=== PATIENT | female | born 1990 | race Caucasian/White ===

== ENCOUNTER 2018-09-07 20:45 | Inpatient (IN) | payer MEDICAID ==
[~2018-09-07] VITALS: Ht 162.6 cm; Wt 71.7 kg
[2018-09-07 21:40] VITALS: BP 106/80
[2018-09-07] MEDS ORDERED: CARBOPROST 250 MCG/ML AMP IM PRN (21:40)
[2018-09-07] MEDS ORDERED: NALBUPHINE 10 MG/ML AMP IVP PRN (21:40)
[2018-09-07] MEDS ORDERED: METHYLERGONOVINE 0.2 MG/ML AMP IM PRN (21:40)
[2018-09-07] MEDS ORDERED: OXYTOCIN 10 UNITS/ML VIAL IM SCH (21:40)
[2018-09-07] MEDS ORDERED: PREN-380 PO (21:43)
[2018-09-07] MEDS ORDERED: LIDOCAINE 2% 1000 MG/50 ML VIAL INJ ONE (22:18)
[2018-09-07 22:24] LABS: BASOPHILS # (AUTO) 0.1 K/uL (0.00-0.22); BASOPHILS % (AUTO) 0.8 % (0.0-2.0); EOSINOPHILS # (AUTO) 0.1 K/uL (0-0.4); EOSINOPHILS % (AUTO) 0.8 % (0.0-4.0); HEMATOCRIT 36.2 % (36-48); HEMOGLOBIN 11.6 g/dL (12.0-16.0); LYMPHOCYTES # (AUTO) 1.5 K/uL (2.5-16.5); LYMPHOCYTES % (AUTO) 23.2 % (20.5-51.1); MEAN CORPUSCULAR HEMOGLOBIN 25 pg (27-31); MEAN CORPUSCULAR HGB CONC 32 g/dL (33-37); MEAN CORPUSCULAR VOLUME 78.9 fL (80-94); MONOCYTES # (AUTO) 0.5 K/uL (0.8-1.0); MONOCYTES % (AUTO) 8.1 % (1.7-9.3); NEUTROPHILS # (AUTO) 4.4 K/uL (1.8-7.7); NEUTROPHILS % (AUTO) 67.1 % (42.2-75.2); PLATELET COUNT (AUTO) 123 K/uL (140-450); RED BLOOD CELL COUNT(AUTO) 4.58 MIL/uL (4.20-5.40); WHITE BLOOD COUNT (AUTO) 6.6 K/uL (4.8-10.8)
[2018-09-07] MEDS: LACTATED RINGERS 1,000 ML IV SCH (22:33)
[2018-09-07 22:35] LABS: APPEARANCE,URINE CLEAR (CLEAR); BILIRUBIN,URINE NEGATIVE (NEGATIVE); BLOOD, URINE NEGATIVE (NEGATIVE); COLOR,URINE YELLOW (YELLOW); LEUKOCYTE ESTERASE ,URINE NEGATIVE (NEGATIVE); NITRITE, URINE NEGATIVE (NEGATIVE); PH,URINE 6.5 (5.0-9.0); UGLUCOSE NEGATIVE (NEGATIVE)
[2018-09-07] MEDS ORDERED: PROMETHAZINE 25 MG/ML VIAL ONE (22:36)
[2018-09-07] MEDS ORDERED: NALBUPHINE 10 MG/ML AMP ONE (22:36)
[2018-09-07] MEDS ORDERED: OXYTOCIN 20 UNITS in LACTATED RINGERS 1,000 ML IV SCH (22:40)
[2018-09-07] MEDS ORDERED: OXYTOCIN 20 UNITS/LR PREMIX 1,000 ML IV ONE (23:00)
[2018-09-07] MEDS ORDERED: OXYTOCIN 10 UNITS/ML VIAL ONE (23:00)
[2018-09-08] MEDS ORDERED: ROPIVACAINE 0.2%/NS PREMIX 250 ML EPI ONE (00:06)
[2018-09-08] MEDS: LACTATED RINGERS 1,000 ML IV SCH (00:18)
[2018-09-08] MEDS ORDERED: ROPIVACAINE 0.2%/NS PREMIX 250 ML EPI SCH (00:55)
[2018-09-08] MEDS ORDERED: OXYTOCIN 20 UNITS in LACTATED RINGERS 1,000 ML IV SCH (02:37)
[2018-09-08] MEDS ORDERED: MEASLES, MUMPS, AND RUBELLA 1 VIAL SQVAC PRN (02:40)
[2018-09-08] MEDS ORDERED: ACETAMINOPHEN 325 MG TAB PO PRN (02:40)
--- NOTE | 2018-09-08 08:59 | NUR ---
PATIENT HAS BEEN SCREENED AND CATEGORIZED LOW NUTRITION RISK. PATIENT WILL BE SEEN WITHIN 7 DAYS OF ADMISSION. 09/14/[address]
[2018-09-08] MEDS: IBUPROFEN 600 MG TAB PO PRN ×2 (09:02→15:47)
[2018-09-08] MEDS ORDERED: INFLUENZA VIRUS VACCINE QUAD 0.5 ML SYR IMVAC PRN (20:47)
[2018-09-09] MEDS: IBUPROFEN 600 MG TAB PO PRN ×2 (00:01→19:47)
[2018-09-09 08:25] LABS: BASOPHILS # (AUTO) 0.1 K/uL (0.00-0.22); BASOPHILS % (AUTO) 0.9 % (0.0-2.0); EOSINOPHILS # (AUTO) 0.1 K/uL (0-0.4); EOSINOPHILS % (AUTO) 1.9 % (0.0-4.0); HEMATOCRIT 31.6 % (36-48); HEMOGLOBIN 10.2 g/dL (12.0-16.0); LYMPHOCYTES # (AUTO) 1.7 K/uL (2.5-16.5); LYMPHOCYTES % (AUTO) 25.7 % (20.5-51.1); MEAN CORPUSCULAR HEMOGLOBIN 26 pg (27-31); MEAN CORPUSCULAR HGB CONC 32 g/dL (33-37); MEAN CORPUSCULAR VOLUME 78.9 fL (80-94); MONOCYTES # (AUTO) 0.5 K/uL (0.8-1.0); MONOCYTES % (AUTO) 7.9 % (1.7-9.3); NEUTROPHILS # (AUTO) 4.2 K/uL (1.8-7.7); NEUTROPHILS % (AUTO) 63.6 % (42.2-75.2); PLATELET COUNT (AUTO) 82 K/uL (140-450); RED CELL DISTRIBUTION WIDTH 15.6 % (11.6-13.7); WHITE BLOOD COUNT (AUTO) 6.6 K/uL (4.8-10.8)
[2018-09-09] MEDS ORDERED: MISOPROSTOL 25 MCG TAB ONE (19:28)
[2018-09-10] MEDS: IBUPROFEN 600 MG TAB PO PRN (08:20)
== END 2018-09-10 14:15 | disposition home or self-care (01) | DRG 560 ==
LOC: MLD 20:45 → MFCC 09-08 05:00
PROVIDERS: ADMIT Obstetrics & Gynecology; ATTEND Obstetrics & Gynecology
PROC: 10E0XZZ Delivery of Products of Conception, External Approach (ICD-10-PCS; principal; 2018-09-07)
PROC: 10907ZC Drainage of Amniotic Fluid, Therapeutic from Products of Conception, Via Natural or Artificial Opening (ICD-10-PCS; 2018-09-07)
PROC: 3E0R3BZ Introduction of Anesthetic Agent into Spinal Canal, Percutaneous Approach (ICD-10-PCS; 2018-09-07)
PROC: 00HU33Z Insertion of Infusion Device into Spinal Canal, Percutaneous Approach (ICD-10-PCS; 2018-09-07)
PROC: 3E033VJ Introduction of Other Hormone into Peripheral Vein, Percutaneous Approach (ICD-10-PCS; 2018-09-07)
PROC: 3E02340 Introduction of Influenza Vaccine into Muscle, Percutaneous Approach (ICD-10-PCS; 2018-09-08)
PROC: 3E0234Z Introduction of Serum, Toxoid and Vaccine into Muscle, Percutaneous Approach (ICD-10-PCS; 2018-09-08)
DX: O77.0 Labor and delivery complicated by meconium in amniotic fluid (principal); Z23 Encounter for immunization; Z37.0 Single live birth; Z3A.39 39 weeks gestation of pregnancy; Z83.3 Family history of diabetes mellitus; Z82.49 Family history of ischemic heart disease and other diseases of the circulatory system
CPT/HCPCS: 36415; 51702; 59409; 76815; 81003; 85025; 85379; 85384; 85730; 86592; 86886; 86900; 86901; 90658; 90707; J2001; J2300; J2550; J2590; J2795; J7120; Q0092

== ENCOUNTER 2021-04-30 12:44 | Emergency (ER) | payer MEDICAID ==
[~2021-04-30] VITALS: Ht 160 cm; Wt 64.4 kg
[~2021-04-30 12:44] MED LIST: PREN-380 PO
[2021-04-30 12:53] VITALS: BP 97/51
[2021-04-30] MEDS ORDERED: ACETAMINOPHEN EXTRA STRENGTH 500 MG TAB PO ONE (13:00)
[2021-04-30] MEDS ORDERED: DICYCLOMINE HCL LIQUID 20 MG, ALUMINUM HYD/MAG/SIMETHICONE 30 ML, LIDOCAINE VISCOUS 2% ... PO ONE ×3 (13:00)
--- NOTE | 2021-04-30 13:05 | NUR ---
30 Y/O FEMALE C/O MID ABD PAIN RADIATING TO LOWER ABD X 1 MONTH WITH WORSENING PAIN THE LAST 3 DAYS. DENIES N/V/D. PT STATES 9/10 PAIN. ABD SOFT NON TENDER. MEDHX: DENIES
--- NOTE | 2021-04-30 13:07 | NUR ---
LAB AT BEDSIDE
--- NOTE | 2021-04-30 13:09 | NUR ---
DR MONTEMAYOR AT BEDSIDE EXAMINING PATIENT
[2021-04-30] MEDS ORDERED: ALUMINUM HYD/MAG/SIMETHICONE 30 ML UDC ONE (13:13)
[2021-04-30] MEDS ORDERED: LIDOCAINE VISCOUS 2% 20 ML UDC ONE (13:13)
[2021-04-30] MEDS ORDERED: DICYCLOMINE HCL LIQUID 10 MG/5 ML UDC ONE (13:14)
[2021-04-30 13:16] LABS: EOSINOPHILS # (AUTO) 0.1 K/uL (0-0.4); EOSINOPHILS % (AUTO) 1.3 % (0.0-4.0); HEMATOCRIT 39.5 % (36-48); HEMOGLOBIN 13.6 g/dL (12.0-16.0); LYMPHOCYTES # (AUTO) 1.3 K/uL (2.5-16.5); LYMPHOCYTES % (AUTO) 26.8 % (20.5-51.1); MEAN CORPUSCULAR HEMOGLOBIN 30 pg (27-31); MEAN CORPUSCULAR HGB CONC 34 g/dL (33-37); MEAN CORPUSCULAR VOLUME 87.1 fL (80-94); MONOCYTES # (AUTO) 0.3 K/uL (0.8-1.0); MONOCYTES % (AUTO) 6.2 % (1.7-9.3); NEUTROPHILS # (AUTO) 3.2 K/uL (1.8-7.7); NEUTROPHILS % (AUTO) 64.7 % (42.2-75.2); PLATELET COUNT (AUTO) 159 K/uL (140-450); RED BLOOD CELL COUNT(AUTO) 4.53 MIL/uL (4.20-5.40); RED CELL DISTRIBUTION WIDTH 13.1 % (11.6-13.7); WHITE BLOOD COUNT (AUTO) 4.9 K/uL (4.8-10.8)
[2021-04-30 13:34] LABS: ANION GAP 12.2 (8-16); CARBON DIOXIDE 26.7 mmol/L (21-32); CREATININE 0.8 mg/dL (0.6-1.3); POTASSIUM 3.9 mmol/L (3.5-5.1); TOTAL BILIRUBIN 0.4 mg/dL (0.0-1.0)
--- NOTE | 2021-04-30 13:53 | NUR ---
XRAY AT BEDSIDE
[2021-04-30] MEDS ORDERED: DICY10CA14 PO (14:29)
[2021-04-30] MEDS ORDERED: MIRABULK PO (14:29)
[2021-04-30 14:49] VITALS: BP 97/51
--- NOTE | 2021-04-30 14:49 | NUR ---
Patient discharged with v/s stable. Written and verbal after care instructions given and explained. Patient alert, oriented and verbalized understanding of instructions. Ambulatory with steady gait. All questions addressed prior to discharge. ID band removed. Patient advised to follow up with PMD. Rx of DICYCLOMINE HCL AND MIRALAX given. Patient educated on indication of medication including possible reaction and side effects. Opportunity to ask questions provided and answered.
== END 2021-04-30 14:49 | disposition home or self-care (01) ==
LOC: MED 12:44
DX: K59.00 Constipation, unspecified (principal); R14.0 Abdominal distension (gaseous); Z79.899 Other long term (current) drug therapy
CPT/HCPCS: 36415; 74018; 80053; 81002; 81025; 83690; 85025; 99284